=== PATIENT | male | born 1990 | race Caucasian/White ===

== ENCOUNTER 2018-03-24 13:06 | Emergency (ER) | payer MEDICAID ==
[~2018-03-24] VITALS: Ht 177.8 cm; Wt 165.4 kg
[2018-03-24 13:19] VITALS: BP 110/74
[2018-03-24 13:53] LABS: BASOPHILS # (AUTO) 0.06 x10^3/uL (0-0.1); BASOPHILS % (AUTO) 1 % (0-1); EOSINOPHILS # (AUTO) 0.08 x10^3/uL (0-0.4); EOSINOPHILS % (AUTO) 1 % (1-7); LYMPHOCYTES # (AUTO) 2.01 x10^3/uL (1-3.4); LYMPHOCYTES % (AUTO) 30 % (22-44); MD NO; MEAN CORPUSCULAR HEMOGLOBIN 31.5 pg (27.5-34.5); MEAN CORPUSCULAR HGB CONC 33.4 g/dL (33.2-36.2); MEAN CORPUSCULAR VOLUME 94.2 fL (81-97); MEAN PLATELET VOLUME 7.7 fL (7.4-10.4); MONOCYTES # (AUTO) 0.51 x10^3/uL (0.2-0.8); MONOCYTES % (AUTO) 8 % (2-9); NEUTROPHILS # (AUTO) 4.12 x10^3/uL (1.8-6.8); NEUTROPHILS % (AUTO) 61 % (42-75); PLATELET COUNT 374 x10^3/uL (130-400); RED BLOOD COUNT 4.24 x10^6/uL (4.38-5.82); RED CELL DISTRIBUTION WIDTH 13.7 % (9.4-14.8)
[2018-03-24 14:03] LABS: ANION GAP 4 mmol/L (5-15); CALCIUM 8.7 mg/dL (8.5-10.1); CHLORIDE 106 mmol/L (98-107)
[2018-03-24 14:04] LABS: CREATININE 0.92 mg/dL (0.7-1.3)
== END 2018-03-24 16:04 | disposition left against medical advice (07) ==
LOC: ED 15:58
DX: M79.662 Pain in left lower leg (principal); M25.475 Effusion, left foot
CPT/HCPCS: 36415; 80048; 82040; 85025; 99285

== ENCOUNTER 2018-04-14 23:14 | Emergency (ER) | payer MEDICAID ==
[~2018-04-14] VITALS: Ht 177.8 cm; Wt 70.0 kg
[2018-04-14] MEDS ORDERED: METOCLOPRAMIDE 5 MG/ML, 2ML ONE (23:50)
[2018-04-14 23:55] LABS: BASOPHILS # (AUTO) 0.03 x10^3/uL (0-0.1); BASOPHILS % (AUTO) 0 % (0-1); EOSINOPHILS # (AUTO) 0.01 x10^3/uL (0-0.4); EOSINOPHILS % (AUTO) 0 % (1-7); LYMPHOCYTES % (AUTO) 4 % (22-44); MD NO; MEAN CORPUSCULAR HEMOGLOBIN 32.1 pg (27.5-34.5); MEAN CORPUSCULAR HGB CONC 34.3 g/dL (33.2-36.2); MEAN CORPUSCULAR VOLUME 93.5 fL (81-97); MEAN PLATELET VOLUME 7.6 fL (7.4-10.4); MONOCYTES % (AUTO) 6 % (2-9); NEUTROPHILS # (AUTO) 15.59 x10^3/uL (1.8-6.8); NEUTROPHILS % (AUTO) 90 % (42-75); PLATELET COUNT 412 x10^3/uL (130-400); RED BLOOD COUNT 4.95 x10^6/uL (4.38-5.82); RED CELL DISTRIBUTION WIDTH 13.3 % (9.4-14.8)
[2018-04-15] MEDS ORDERED: ONDANSETRON 2MG/ML, 2ML IVPush ONE
[2018-04-15] MEDS ORDERED: SODIUM CHLORIDE 0.9% 1,000ML IVBOLUS ONE
[2018-04-15] MEDS ORDERED: METOCLOPRAMIDE 5 MG/ML, 2ML IVPush ONE
[2018-04-15 00:06] LABS: ALANINE AMINOTRANSFERASE 71 U/L (12-78); ALBUMIN 4.3 g/dL (3.4-5.0); ANION GAP 9 mmol/L (5-15); CALCIUM 9.5 mg/dL (8.5-10.1); CHLORIDE 106 mmol/L (98-107); CREATININE 1.12 mg/dL (0.7-1.3)
[2018-04-15 00:08] LABS: ALKALINE PHOSPHATASE 74 U/L (45-117); BILIRUBIN,TOTAL 0.7 mg/dL (0.2-1.0); TOTAL PROTEIN 8.8 g/dL (6.4-8.2)
[2018-04-15] MEDS ORDERED: PROMETHAZINE 25 MG/ML, 1ML ONE (00:12)
[2018-04-15] MEDS ORDERED: OMNIPAQUE 350 MG/ML, 100ML BOTTLE ONE (00:30)
[2018-04-15] MEDS ORDERED: PROMETHAZINE 25 MG/ML, 1ML IM ONE (00:30)
[2018-04-15 01:51] LABS: MICROSCOPIC INDICATED
[2018-04-15 01:59] LABS: CULTURE INDICATED? NO
[2018-04-15 02:02] LABS: AMPHETAMINE SCREEN, URINE Positive (Negative); BARBITURATE SCREEN, URINE Negative (Negative); BENZODIAZEPINE SCREEN, URINE Negative (Negative); CANNABINOID SCREEN, URINE Positive (Negative); COCAINE SCREEN, URINE Negative (Negative); METHADONE SCREEN, URINE Negative (Negative); OPIATE SCREEN, URINE Negative (Negative)
[2018-04-15] MEDS ORDERED: ZIPRASIDONE 20 MG INJ IM ONE ×2 (02:30→02:31)
[2018-04-15 02:37] VITALS: BP 127/87
== END 2018-04-15 03:10 | disposition home or self-care (01) ==
LOC: ED 04-15 03:08
DX: R11.2 Nausea with vomiting, unspecified (principal); G43.A0 Cyclical vomiting, in migraine, not intractable; F12.129 Cannabis abuse with intoxication, unspecified; F15.129 Other stimulant abuse with intoxication, unspecified; F17.210 Nicotine dependence, cigarettes, uncomplicated
CPT/HCPCS: 36415; 74177; 80053; 80307; 81001; 83690; 85025; 96361; 96372; 96374; 99285; J2550; J2765; J3486; J7030; Q9967

== ENCOUNTER 2018-05-23 15:04 | Emergency (ER) | payer MEDICAID ==
[~2018-05-23] VITALS: Ht 177.8 cm; Wt 76.1 kg
[2018-05-23 15:14] VITALS: BP 108/63
[2018-05-23 15:37] LABS: BASOPHILS # (AUTO) 0.07 x10^3/uL (0-0.1); BASOPHILS % (AUTO) 1 % (0-1); EOSINOPHILS # (AUTO) 0.11 x10^3/uL (0-0.4); EOSINOPHILS % (AUTO) 1 % (1-7); LYMPHOCYTES # (AUTO) 1.76 x10^3/uL (1-3.4); LYMPHOCYTES % (AUTO) 21 % (22-44); MD NO; MEAN CORPUSCULAR HEMOGLOBIN 31.3 pg (27.5-34.5); MEAN CORPUSCULAR HGB CONC 33.4 g/dL (33.2-36.2); MEAN CORPUSCULAR VOLUME 93.6 fL (81-97); MEAN PLATELET VOLUME 7.8 fL (7.4-10.4); MONOCYTES # (AUTO) 0.42 x10^3/uL (0.2-0.8); MONOCYTES % (AUTO) 5 % (2-9); NEUTROPHILS # (AUTO) 6.22 x10^3/uL (1.8-6.8); NEUTROPHILS % (AUTO) 73 % (42-75); PLATELET COUNT 372 x10^3/uL (130-400); RED BLOOD COUNT 4.27 x10^6/uL (4.38-5.82); RED CELL DISTRIBUTION WIDTH 13.3 % (9.4-14.8)
[2018-05-23 15:47] LABS: ALBUMIN 3.7 g/dL (3.4-5.0); ANION GAP 6 mmol/L (5-15); CALCIUM 8.4 mg/dL (8.5-10.1); CHLORIDE 111 mmol/L (98-107); SALICYLATE LEVEL 1.9 mg/dL (2.8-20.0)
[2018-05-23 15:49] LABS: ACETAMINOPHEN < 2 mcg/mL (10-30); CREATININE 1.04 mg/dL (0.7-1.3)
[2018-05-23 16:09] LABS: AMPHETAMINE SCREEN, URINE Positive (Negative); BARBITURATE SCREEN, URINE Negative (Negative); BENZODIAZEPINE SCREEN, URINE Negative (Negative); CANNABINOID SCREEN, URINE Positive (Negative); COCAINE SCREEN, URINE Negative (Negative); METHADONE SCREEN, URINE Negative (Negative); OPIATE SCREEN, URINE Negative (Negative)
== END 2018-05-23 17:55 | disposition home or self-care (01) ==
LOC: ED 15:47
DX: F32.9 Major depressive disorder, single episode, unspecified (principal); F15.10 Other stimulant abuse, uncomplicated; F17.200 Nicotine dependence, unspecified, uncomplicated
CPT/HCPCS: 36415; 80048; 80307; 80329; 82040; 85025; 99284; G0480

== ENCOUNTER 2018-05-24 06:08 | Emergency (ER) | payer MEDICAID ==
[2018-05-24 07:37] LABS: SALICYLATE LEVEL 2.2 mg/dL (2.8-20.0)
[2018-05-24 07:40] LABS: ACETAMINOPHEN < 2 mcg/mL (10-30)
[2018-05-24 08:02] LABS: AMPHETAMINE SCREEN, URINE Positive (Negative); BARBITURATE SCREEN, URINE Negative (Negative); BENZODIAZEPINE SCREEN, URINE Negative (Negative); CANNABINOID SCREEN, URINE Positive (Negative); COCAINE SCREEN, URINE Negative (Negative); METHADONE SCREEN, URINE Negative (Negative); OPIATE SCREEN, URINE Negative (Negative)
[2018-05-24 08:53] VITALS: BP 102/64
== END 2018-05-24 08:55 | disposition home or self-care (01) ==
LOC: ED 07:31
DX: F33.9 Major depressive disorder, recurrent, unspecified (principal); F15.10 Other stimulant abuse, uncomplicated
CPT/HCPCS: 36415; 80307; 80329; 99284; G0480

== ENCOUNTER 2018-05-29 02:24 | Emergency (ER) | payer MEDICAID ==
[~2018-05-29] VITALS: Ht 177.8 cm; Wt 75.0 kg
[2018-05-29 02:25] VITALS: BP 112/62
[2018-05-29 03:23] LABS: AMPHETAMINE SCREEN, URINE Positive (Negative); BARBITURATE SCREEN, URINE Negative (Negative); BENZODIAZEPINE SCREEN, URINE Negative (Negative); CANNABINOID SCREEN, URINE Positive (Negative); COCAINE SCREEN, URINE Negative (Negative); METHADONE SCREEN, URINE Negative (Negative); OPIATE SCREEN, URINE Negative (Negative)
== END 2018-05-29 03:16 | disposition home or self-care (01) ==
LOC: ED 03:12
DX: F15.10 Other stimulant abuse, uncomplicated (principal); F12.10 Cannabis abuse, uncomplicated
CPT/HCPCS: 80307; 99283

== ENCOUNTER 2018-06-01 14:09 | Emergency (ER) | payer MEDICAID ==
[~2018-06-01] VITALS: Ht 167.6 cm; Wt 46.0 kg
[2018-06-01] MEDS ORDERED: SODIUM CHLORIDE 0.9% 1,000 ML IV ONE (14:44)
[2018-06-01] MEDS ORDERED: SODIUM CHLORIDE FLUSH 10ML SYR IVF ONE (15:00)
[2018-06-01] MEDS ORDERED: ONDANSETRON ODT 4 MG PO ONE (15:00)
[2018-06-01] MEDS ORDERED: SODIUM CHLORIDE 0.9% 1,000ML IVBOLUS ONE (15:00)
[2018-06-01] MEDS ORDERED: ONDANSETRON 2MG/ML, 2ML ONE (15:05)
[2018-06-01 15:20] LABS: BASOPHILS # (AUTO) 0.05 x10^3/uL (0-0.1); BASOPHILS % (AUTO) 1 % (0-1); EOSINOPHILS # (AUTO) 0.07 x10^3/uL (0-0.4); EOSINOPHILS % (AUTO) 1 % (1-7); LYMPHOCYTES # (AUTO) 1.52 x10^3/uL (1-3.4); LYMPHOCYTES % (AUTO) 25 % (22-44); MD NO; MEAN CORPUSCULAR HEMOGLOBIN 30.9 pg (27.5-34.5); MEAN CORPUSCULAR HGB CONC 33.3 g/dL (33.2-36.2); MEAN CORPUSCULAR VOLUME 92.8 fL (81-97); MEAN PLATELET VOLUME 7.9 fL (7.4-10.4); MONOCYTES # (AUTO) 0.36 x10^3/uL (0.2-0.8); MONOCYTES % (AUTO) 6 % (2-9); NEUTROPHILS # (AUTO) 4.08 x10^3/uL (1.8-6.8); NEUTROPHILS % (AUTO) 67 % (42-75); PLATELET COUNT 399 x10^3/uL (130-400); RED BLOOD COUNT 4.33 x10^6/uL (4.38-5.82); RED CELL DISTRIBUTION WIDTH 13.5 % (9.4-14.8)
[2018-06-01 15:24] LABS: ALANINE AMINOTRANSFERASE 75 U/L (12-78); ALBUMIN 3.3 g/dL (3.4-5.0); ANION GAP 11 mmol/L (5-15); CALCIUM 8.8 mg/dL (8.5-10.1); CHLORIDE 105 mmol/L (98-107)
[2018-06-01 15:26] LABS: ALKALINE PHOSPHATASE 64 U/L (45-117); BILIRUBIN,TOTAL 0.4 mg/dL (0.2-1.0); TOTAL PROTEIN 7.1 g/dL (6.4-8.2)
[2018-06-01] MEDS ORDERED: ONDANSETRON 2MG/ML, 2ML IVPush ONE (15:30)
[2018-06-01 17:30] VITALS: BP 106/64
== END 2018-06-01 17:33 | disposition home or self-care (01) ==
LOC: ED 15:57
DX: R11.2 Nausea with vomiting, unspecified (principal); E86.0 Dehydration; K21.9 Gastro-esophageal reflux disease without esophagitis
CPT/HCPCS: 36415; 80053; 83690; 85025; 96361; 96374; 99285; J2405; J7030

== ENCOUNTER 2018-06-02 05:58 | Emergency (ER) | payer MEDICAID ==
[~2018-06-02] VITALS: Ht 177.8 cm; Wt 80.0 kg
[2018-06-02 07:55] VITALS: BP 121/79
== END 2018-06-02 08:04 | disposition home or self-care (01) ==
LOC: ED 06:14
DX: R11.2 Nausea with vomiting, unspecified (principal)
CPT/HCPCS: 36415; 80047; 99283

== ENCOUNTER 2018-06-04 14:35 | Emergency (ER) | payer MEDICAID ==
[~2018-06-04] VITALS: Ht 177.8 cm; Wt 80.0 kg
[2018-06-04 15:22] VITALS: BP 134/77
== END 2018-06-04 15:57 | disposition home or self-care (01) ==
LOC: ED 15:40
DX: F15.10 Other stimulant abuse, uncomplicated (principal)
CPT/HCPCS: 99281

== ENCOUNTER 2018-06-13 19:47 | Emergency (ER) | payer MEDICAID ==
[~2018-06-13] VITALS: Ht 177.8 cm; Wt 78.0 kg
[2018-06-13] MEDS ORDERED: MECLIZINE CHEWABLE 25 MG TAB PO ONE (20:00)
[2018-06-13] MEDS ORDERED: SODIUM CHLORIDE FLUSH 10ML SYR IVF ONE (20:00)
[2018-06-13] MEDS ORDERED: MAALOX/HYOSCYAMINE/LIDOCAINE 45 ML BTL PO ONE (20:00)
[2018-06-13] MEDS ORDERED: SODIUM CHLORIDE 0.9% 1,000ML IVBOLUS ONE (20:00)
[2018-06-13] MEDS ORDERED: MECLIZINE CHEWABLE 25 MG TAB ONE (20:01)
[2018-06-13] MEDS ORDERED: MAALOX/HYOSCYAMINE/LIDOCAINE 45 ML BTL ONE (20:01)
[2018-06-13 20:25] LABS: BASOPHILS # (AUTO) 0.04 x10^3/uL (0-0.1); BASOPHILS % (AUTO) 0 % (0-1); EOSINOPHILS # (AUTO) 0.03 x10^3/uL (0-0.4); EOSINOPHILS % (AUTO) 0 % (1-7); LYMPHOCYTES # (AUTO) 1.47 x10^3/uL (1-3.4); LYMPHOCYTES % (AUTO) 13 % (22-44); MD NO; MEAN CORPUSCULAR HEMOGLOBIN 31.7 pg (27.5-34.5); MEAN CORPUSCULAR HGB CONC 33.8 g/dL (33.2-36.2); MEAN CORPUSCULAR VOLUME 93.9 fL (81-97); MEAN PLATELET VOLUME 7.9 fL (7.4-10.4); MONOCYTES # (AUTO) 0.54 x10^3/uL (0.2-0.8); MONOCYTES % (AUTO) 5 % (2-9); NEUTROPHILS # (AUTO) 9.11 x10^3/uL (1.8-6.8); NEUTROPHILS % (AUTO) 81 % (42-75); PLATELET COUNT 401 x10^3/uL (130-400); RED BLOOD COUNT 4.52 x10^6/uL (4.38-5.82); RED CELL DISTRIBUTION WIDTH 13.9 % (9.4-14.8)
[2018-06-13 20:36] LABS: ALANINE AMINOTRANSFERASE 152 U/L (12-78); ALBUMIN 4.1 g/dL (3.4-5.0); ANION GAP 9 mmol/L (5-15); CALCIUM 9.5 mg/dL (8.5-10.1); CHLORIDE 105 mmol/L (98-107)
[2018-06-13 20:38] LABS: ALKALINE PHOSPHATASE 66 U/L (45-117); BILIRUBIN,TOTAL 0.3 mg/dL (0.2-1.0); TOTAL PROTEIN 8.4 g/dL (6.4-8.2)
[2018-06-13 20:40] LABS: TROPONIN I < 0.015 ng/mL (0.000-0.045)
[2018-06-13 21:06] VITALS: BP 104/57
== END 2018-06-13 21:26 | disposition home or self-care (01) ==
LOC: ED 19:58
DX: R42 Dizziness and giddiness (principal); R10.13 Epigastric pain
CPT/HCPCS: 36415; 80053; 83690; 84484; 85025; 93005; 96360; 99285; J7030

== ENCOUNTER 2018-06-20 15:25 | Emergency (ER) | payer MEDICAID ==
[~2018-06-20] VITALS: Ht 177.8 cm; Wt 75.0 kg
[2018-06-20] MEDS ORDERED: ONDANSETRON ODT 4 MG ONE (15:56)
[2018-06-20] MEDS ORDERED: ONDANSETRON ODT 4 MG PO ONE (16:00)
[2018-06-20 16:02] LABS: BASOPHILS # (AUTO) 0.06 x10^3/uL (0-0.1); BASOPHILS % (AUTO) 1 % (0-1); EOSINOPHILS # (AUTO) 0.09 x10^3/uL (0-0.4); EOSINOPHILS % (AUTO) 1 % (1-7); LYMPHOCYTES # (AUTO) 1.42 x10^3/uL (1-3.4); LYMPHOCYTES % (AUTO) 17 % (22-44); MD NO; MEAN CORPUSCULAR HEMOGLOBIN 31.6 pg (27.5-34.5); MEAN CORPUSCULAR HGB CONC 33.7 g/dL (33.2-36.2); MEAN CORPUSCULAR VOLUME 93.7 fL (81-97); MEAN PLATELET VOLUME 7.9 fL (7.4-10.4); MONOCYTES # (AUTO) 0.39 x10^3/uL (0.2-0.8); MONOCYTES % (AUTO) 5 % (2-9); NEUTROPHILS # (AUTO) 6.47 x10^3/uL (1.8-6.8); NEUTROPHILS % (AUTO) 77 % (42-75); PLATELET COUNT 464 x10^3/uL (130-400); RED BLOOD COUNT 4.25 x10^6/uL (4.38-5.82); RED CELL DISTRIBUTION WIDTH 13.8 % (9.4-14.8)
[2018-06-20 16:07] LABS: ALANINE AMINOTRANSFERASE 128 U/L (12-78); ALBUMIN 3.4 g/dL (3.4-5.0); ANION GAP 9 mmol/L (5-15); CALCIUM 8.6 mg/dL (8.5-10.1); CHLORIDE 104 mmol/L (98-107); CREATININE 0.85 mg/dL (0.7-1.3)
[2018-06-20 16:10] LABS: ALKALINE PHOSPHATASE 60 U/L (45-117); BILIRUBIN,TOTAL 0.3 mg/dL (0.2-1.0); TOTAL PROTEIN 7.5 g/dL (6.4-8.2)
[2018-06-20] MEDS ORDERED: PROMETHAZINE 25 MG/ML, 1ML IM ONE (16:30)
[2018-06-20] MEDS ORDERED: MAALOX/HYOSCYAMINE/LIDOCAINE 45 ML BTL PO ONE (16:30)
[2018-06-20] MEDS ORDERED: MAALOX/HYOSCYAMINE/LIDOCAINE 45 ML BTL ONE (17:53)
[2018-06-20] MEDS ORDERED: PROMETHAZINE 25 MG/ML, 1ML ONE (17:53)
[2018-06-20 19:03] VITALS: BP 111/75
== END 2018-06-20 19:04 | disposition home or self-care (01) ==
LOC: ED 16:45
DX: R55 Syncope and collapse (principal); R11.0 Nausea; F32.9 Major depressive disorder, single episode, unspecified; F17.200 Nicotine dependence, unspecified, uncomplicated
CPT/HCPCS: 36415; 76700; 80053; 83690; 85025; 86677; 93005; 96372; 99285; J2550; Q0162

== ENCOUNTER 2018-06-23 09:59 | Emergency (ER) | payer MEDICAID ==
[~2018-06-23] VITALS: Ht 177.8 cm; Wt 81.7 kg
[2018-06-23 10:05] VITALS: BP 111/71
== END 2018-06-23 11:16 | disposition home or self-care (01) ==
LOC: ED 10:45
DX: K02.9 Dental caries, unspecified (principal); J02.9 Acute pharyngitis, unspecified; F32.9 Major depressive disorder, single episode, unspecified; F17.200 Nicotine dependence, unspecified, uncomplicated; F12.10 Cannabis abuse, uncomplicated; Z72.9 Problem related to lifestyle, unspecified; Z87.11 Personal history of peptic ulcer disease
CPT/HCPCS: 99283

== ENCOUNTER 2018-06-25 05:50 | Emergency (ER) | payer MEDICAID ==
[~2018-06-25] VITALS: Ht 177.8 cm; Wt 75.0 kg
[2018-06-25] MEDS ORDERED: PROMETHAZINE 25 MG/ML, 1ML IM ONE (06:30)
[2018-06-25 06:37] LABS: BASOPHILS # (AUTO) 0.02 x10^3/uL (0-0.1); BASOPHILS % (AUTO) 0 % (0-1); EOSINOPHILS # (AUTO) 0.25 x10^3/uL (0-0.4); EOSINOPHILS % (AUTO) 3 % (1-7); LYMPHOCYTES # (AUTO) 1.82 x10^3/uL (1-3.4); LYMPHOCYTES % (AUTO) 19 % (22-44); MD NO; MEAN CORPUSCULAR HEMOGLOBIN 31.3 pg (27.5-34.5); MEAN CORPUSCULAR HGB CONC 33.2 g/dL (33.2-36.2); MEAN CORPUSCULAR VOLUME 94.2 fL (81-97); MEAN PLATELET VOLUME 7.5 fL (7.4-10.4); MONOCYTES % (AUTO) 9 % (2-9); NEUTROPHILS # (AUTO) 6.46 x10^3/uL (1.8-6.8); NEUTROPHILS % (AUTO) 69 % (42-75); PLATELET COUNT 428 x10^3/uL (130-400); RED CELL DISTRIBUTION WIDTH 14.4 % (9.4-14.8)
[2018-06-25] MEDS ORDERED: PROMETHAZINE 25 MG/ML, 1ML ONE (06:45)
[2018-06-25 06:49] LABS: ALANINE AMINOTRANSFERASE 196 U/L (12-78); ALBUMIN 3.2 g/dL (3.4-5.0); ANION GAP 6 mmol/L (5-15); CALCIUM 8.3 mg/dL (8.5-10.1); CHLORIDE 110 mmol/L (98-107); CREATININE 0.66 mg/dL (0.7-1.3)
[2018-06-25 06:51] LABS: ALKALINE PHOSPHATASE 67 U/L (45-117); BILIRUBIN,TOTAL 0.3 mg/dL (0.2-1.0); TOTAL PROTEIN 6.6 g/dL (6.4-8.2)
[2018-06-25 07:09] VITALS: BP 108/74
== END 2018-06-25 08:58 | disposition home or self-care (01) ==
LOC: ED 06:29
DX: R11.2 Nausea with vomiting, unspecified (principal); R19.7 Diarrhea, unspecified
CPT/HCPCS: 36415; 80053; 83690; 85025; 99284

== ENCOUNTER 2018-06-27 08:33 | Emergency (ER) | payer MEDICAID | END 2018-06-27 09:19 | disposition left against medical advice (07) | LOC: ED 09:13 | DX: Z53.21 Procedure and treatment not carried out due to patient leaving prior to being seen by health care provider (principal) ==

== ENCOUNTER 2018-11-28 12:32 | Emergency (ER) | payer MEDICAID ==
[~2018-11-28] VITALS: Ht 175.3 cm; Wt 90.0 kg
[2018-11-28] MEDS ORDERED: SODIUM CHLORIDE 0.9% 1,000ML IVBOLUS ONE (13:30)
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
--- NOTE | 2018-11-28 14:13 | NUR ---
PT. REMAINS MONITORED. PT.'S VITALS COMPLETED.
--- NOTE | 2018-11-28 15:20 | NUR ---
LUNCH RN: PT RESTING IN BED, NADN, VSS, RR EVEN AND UNLABORED. WILL CONTINUE TO MONITOR.
--- NOTE | 2018-11-28 15:31 | NUR ---
PT. HAS NO CHANGES AT THIS TIME. PT. REMAINS MONITORED AND IS RESTING WITHOUT CONCERNS.
--- NOTE | 2018-11-28 15:41 | NUR ---
BLANKETS IN PLACE FOR WARMTH. HOB ELEVATED GREATER THAN 30 DEGREES. NS INFUSING.
[2018-11-28 16:49] VITALS: BP 97/55
--- NOTE | 2018-11-28 16:52 | NUR ---
Note undone in [facility] - 11/28/18 at 1704 by ADRIANE NO CHANGED AT THIS TIME. Addendum: 11/28/18 at 1704 by ADRIANE Veronica londonone in [facility] - 11/28/18 at 1704 by STEPHANIEOVEN NO CHANGES AT THIS TIME.
--- NOTE | 2018-11-28 17:04 | NUR ---
NO CHANGES AT THIS TIME.
== END 2018-11-28 19:24 | disposition home or self-care (01) ==
LOC: ED 16:32
DX: F12.120 Cannabis abuse with intoxication, uncomplicated (principal); I95.9 Hypotension, unspecified; F32.9 Major depressive disorder, single episode, unspecified; F17.200 Nicotine dependence, unspecified, uncomplicated
CPT/HCPCS: 96360; 96361; 99283; J7030

== ENCOUNTER 2018-12-30 02:34 | Emergency (ER) | payer MEDICAID ==
[~2018-12-30] VITALS: Ht 177.8 cm; Wt 81.5 kg
--- NOTE | 2018-12-30 03:25 | NUR ---
First contact w/ pt. Amb to room w/ steady gait. Yolandan.
[2018-12-30] MEDS ORDERED: PROMETHAZINE 25 MG/ML, 1ML ONE (03:26)
--- NOTE | 2018-12-30 03:29 | NUR ---
Pt medicated per oct. Monitoring applied. and pt head of bed elevated to above 45 degrees for pt safety for c/o emesis. Pt offered liquids and informed of need for po challenge via pa order. Pt refusing all liquids and po foods. No wretching or eminent emesis noted in room.
[2018-12-30] MEDS ORDERED: PROMETHAZINE 25 MG/ML, 1ML IM ONE (03:30)
[2018-12-30 03:31] VITALS: BP 138/73
--- NOTE | 2018-12-30 03:53 | NUR ---
Pt refusing to drink anything. This rn asked why and pt stated "because if i drink something ill have to leave." Pa notified.
== END 2018-12-30 04:01 | disposition home or self-care (01) ==
LOC: ED 03:26
DX: F10.10 Alcohol abuse, uncomplicated (principal); F12.10 Cannabis abuse, uncomplicated; R11.2 Nausea with vomiting, unspecified; F32.9 Major depressive disorder, single episode, unspecified; Z72.9 Problem related to lifestyle, unspecified; Z91.14 Patient's other noncompliance with medication regimen; Z87.11 Personal history of peptic ulcer disease
CPT/HCPCS: 96372; 99283; J2550

== ENCOUNTER 2019-02-17 07:03 | Inpatient (IN) | payer MEDICAID ==
[~2019-02-17] VITALS: Ht 177.8 cm; Wt 77.1 kg
--- NOTE | 2019-02-17 07:07 | NUR ---
UNABLE TO GET TEMP D/T VOMITING.
[2019-02-17] MEDS ORDERED: ONDANSETRON 2MG/ML, 2ML ONE ×2 (07:14→10:32)
[2019-02-17] MEDS ORDERED: KETOROLAC 30 MG/1 ML IVPush ONE (07:30)
[2019-02-17] MEDS ORDERED: ONDANSETRON 2MG/ML, 2ML IVPush ONE ×2 (07:30→09:30)
[2019-02-17] MEDS ORDERED: KETOROLAC 30 MG/1 ML ONE (07:41)
--- NOTE | 2019-02-17 07:49 | NUR ---
pt to CT scan at this time, pt has been unable to provide UA thus far. RN has informed pt that UA is needed HALLE
[2019-02-17 07:50] LABS: BASOPHILS # (AUTO) 0.03 x10^3/uL (0-0.1); BASOPHILS % (AUTO) 0 % (0-1); EOSINOPHILS # (AUTO) 0.03 x10^3/uL (0-0.4); EOSINOPHILS % (AUTO) 0 % (1-7); LYMPHOCYTES # (AUTO) 1.18 x10^3/uL (1-3.4); LYMPHOCYTES % (AUTO) 13 % (22-44); MD NO; MEAN CORPUSCULAR HEMOGLOBIN 31.2 pg (27.5-34.5); MEAN CORPUSCULAR HGB CONC 32.6 g/dL (33.2-36.2); MEAN CORPUSCULAR VOLUME 95.8 fL (81-97); MEAN PLATELET VOLUME 7.7 fL (7.4-10.4); MONOCYTES # (AUTO) 0.57 x10^3/uL (0.2-0.8); MONOCYTES % (AUTO) 6 % (2-9); NEUTROPHILS # (AUTO) 7.12 x10^3/uL (1.8-6.8); NEUTROPHILS % (AUTO) 80 % (42-75); PLATELET COUNT 424 x10^3/uL (130-400); RED BLOOD COUNT 4.93 x10^6/uL (4.38-5.82); RED CELL DISTRIBUTION WIDTH 12.9 % (9.4-14.8)
[2019-02-17 07:59] LABS: ALANINE AMINOTRANSFERASE 114 U/L (12-78); ALBUMIN 4.5 g/dL (3.4-5.0); ANION GAP 11 mmol/L (5-15); CALCIUM 9.9 mg/dL (8.5-10.1); CHLORIDE 107 mmol/L (98-107); CREATININE 1.14 mg/dL (0.7-1.3)
[2019-02-17 08:01] LABS: ALKALINE PHOSPHATASE 71 U/L (45-117); BILIRUBIN,TOTAL 0.8 mg/dL (0.2-1.0); TOTAL PROTEIN 8.7 g/dL (6.4-8.2)
[2019-02-17] MEDS ORDERED: PROMETHAZINE 25 MG/ML, 1ML ONE (08:22)
[2019-02-17] MEDS ORDERED: PROMETHAZINE 25 MG/ML, 1ML IM ONE (08:30)
[2019-02-17] MEDS ORDERED: MORPHINE SULFATE 4 MG/ML, 1ML IVPush PRN ×2 (08:30→13:00)
--- NOTE | 2019-02-17 08:47 | NUR ---
pt states he is still unable to urinate
--- NOTE | 2019-02-17 09:17 | NUR ---
BEDSIDE REPORT TO TROY GAO, PT CARE TRANSFERRED AT THIS TIME
[2019-02-17] MEDS ORDERED: SODIUM CHLORIDE 0.9% 1,000ML IVBOLUS ONE (09:30)
--- NOTE | 2019-02-17 09:36 | NUR ---
pt straight cathed per dr. dozier order. at this time no urine atained from straight cath. made aware. 1 liter ns bolus initiated.
--- NOTE | 2019-02-17 10:02 | NUR ---
UPO ENTERING ROOM TO UPDATE VITALS THIS RN NOTICES A STRONG SMELL OF CIGARETTE SMOKE. PT IS SITTING UP IN BED. PT DENIES SMOKING IN ROOM. MADE AWARE
[2019-02-17] MEDS ORDERED: SODIUM CHLORIDE 0.9% 1,000 ML IV ONE (10:34)
[2019-02-17] MEDS ORDERED: SODIUM CHLORIDE FLUSH 10ML SYR IVF PRN (11:00)
[2019-02-17 11:37] VITALS: BP 136/90
[2019-02-17 13:30] VITALS: BP 114/68
[2019-02-17] MEDS ORDERED: BISACODYL 10 MG SUPP PR PRN (14:00)
[2019-02-17] MEDS: NICOTINE 21 MG/24 HR PATCH.TD24 TD SCH (14:00)
[2019-02-17] MEDS ORDERED: LIDODERM 5% PATCH TD PRN (14:00)
[2019-02-17] MEDS ORDERED: ZOLPIDEM 5MG TABLET PO PRN (14:00)
[2019-02-17] MEDS ORDERED: DOCUSATE 100 MG CAPSULE PO PRN (14:00)
[2019-02-17] MEDS ORDERED: hydrALAzine 20 MG/ML, 1ML IVPush PRN (14:00)
[2019-02-17] MEDS: ENOXAPARIN 40 MG/0.4 ML SQ SCH ×2 (14:00→14:04)
[2019-02-17] MEDS ORDERED: ACETAMINOPHEN 325 MG TABLET PO PRN (14:00)
[2019-02-17] MEDS ORDERED: ONDANSETRON ODT 4 MG PO PRN (14:00)
[2019-02-17] MEDS: SODIUM CHLORIDE 0.9% 1,000 ML IV SCH ×2 (14:04→22:18)
[2019-02-17] MEDS: morphine SULFATE 10 MG/ML, 1ML IVPush PRN ×2 (15:44→18:43)
[2019-02-17] MEDS: PROMETHAZINE 25 MG/ML, 1ML IM PRN (15:44)
[2019-02-17 19:15] VITALS: BP 117/73
[2019-02-17] MEDS: FAMOTIDINE 20 MG TABLET PO SCH (21:00)
[2019-02-18] MEDS: ONDANSETRON 2MG/ML, 2ML IVPush PRN ×2 (01:32→14:30)
[2019-02-18] MEDS: morphine SULFATE 10 MG/ML, 1ML IVPush PRN ×3 (01:33→20:21)
[2019-02-18] MEDS: PROMETHAZINE 25 MG/ML, 1ML IM PRN ×2 (01:34→18:26)
[2019-02-18] MEDS: LIDODERM REMOVE PATCH NOTE XX SCH (02:00)
[2019-02-18] MEDS: SODIUM CHLORIDE 0.9% 1,000 ML IV SCH ×2 (05:07→15:46)
[2019-02-18 05:09] LABS: MEAN CORPUSCULAR HEMOGLOBIN 31.3 pg (27.5-34.5); MEAN CORPUSCULAR HGB CONC 32.4 g/dL (33.2-36.2); MEAN CORPUSCULAR VOLUME 96.5 fL (81-97); MEAN PLATELET VOLUME 7.9 fL (7.4-10.4); PLATELET COUNT 379 x10^3/uL (130-400); RED CELL DISTRIBUTION WIDTH 13.3 % (9.4-14.8)
[2019-02-18 05:10] LABS: ANION GAP 9 mmol/L (5-15); CALCIUM 8.4 mg/dL (8.5-10.1); CHLORIDE 107 mmol/L (98-107)
[2019-02-18 05:20] LABS: CREATININE 0.87 mg/dL (0.7-1.3); THYROID STIMULATING HORMONE 0.274 mIU/L (0.358-3.740)
[2019-02-18 05:53] LABS: BASOPHILS # (AUTO) 0.05 x10^3/uL (0-0.1); BASOPHILS % (AUTO) 1 % (0-1); EOSINOPHILS # (AUTO) 0.01 x10^3/uL (0-0.4); EOSINOPHILS % (AUTO) 0 % (1-7); LYMPHOCYTES # (AUTO) 1.38 x10^3/uL (1-3.4); LYMPHOCYTES % (AUTO) 13 % (22-44); MD SCAN; MONOCYTES # (AUTO) 0.74 x10^3/uL (0.2-0.8); MONOCYTES % (AUTO) 7 % (2-9); NEUTROPHILS # (AUTO) 8.88 x10^3/uL (1.8-6.8); NEUTROPHILS % (AUTO) 80 % (42-75)
[2019-02-18] MEDS ORDERED: FENTANYL PF 250 MCG/5ML ONE (06:54)
[2019-02-18] MEDS ORDERED: MIDAZOLAM 1 MG/ML, 2ML ONE (06:54)
[2019-02-18] MEDS ORDERED: ROCURONIUM 10MG/ML,5ML ONE (07:00)
[2019-02-18] MEDS ORDERED: NEOSTIGMINE 1 MG/ML, 10ML ONE (07:00)
[2019-02-18] MEDS ORDERED: PROPOFOL 10 MG/ML, 20ML ONE (07:00)
[2019-02-18] MEDS ORDERED: KETOROLAC 30 MG/1 ML ONE (07:00)
[2019-02-18] MEDS ORDERED: DEXAMETHASONE 4 MG/ML, 1ML ONE (07:00)
[2019-02-18] MEDS ORDERED: CEFAZOLIN 1,000 MG ONE (07:00)
[2019-02-18] MEDS ORDERED: GLYCOPYRROLATE 0.2MG/1ML, 5ML ONE (07:00)
[2019-02-18] MEDS ORDERED: SUCCINYLCHOLINE 20 MG/ML, 10ML ONE (07:00)
[2019-02-18] MEDS ORDERED: ONDANSETRON 2MG/ML, 2ML ONE (07:00)
[2019-02-18] MEDS ORDERED: PHENYLEPHRINE 10 MG/ML ONE (07:16)
[2019-02-18] MEDS ORDERED: MORPHINE SULFATE 4 MG/ML, 1ML IVPush PRN (07:30)
[2019-02-18] MEDS ORDERED: MEPERIDINE/PF 25MG/0.5ML IVPush PRN (07:30)
[2019-02-18] MEDS ORDERED: HYDROmorphone 2 MG/ML, 1ML IVPush PRN (07:30)
[2019-02-18] MEDS ORDERED: hydrALAzine 20 MG/ML, 1ML IV PRN (07:30)
[2019-02-18] MEDS ORDERED: PROMETHAZINE 12.5 MG SUPP PR PRN (07:30)
[2019-02-18] MEDS ORDERED: ONDANSETRON 2MG/ML, 2ML IV PRN (07:30)
[2019-02-18] MEDS ORDERED: HALOPERIDOL 5 MG/ML IV PRN (07:30)
[2019-02-18] MEDS ORDERED: OXYcodone 5 MG/5 ML ORAL.SOL UDC PO PRN (07:30)
[2019-02-18] MEDS ORDERED: PROMETHAZINE 25 MG/ML, 1ML IV PRN (07:30)
[2019-02-18] MEDS ORDERED: ACETAMINOPHEN 325 MG TABLET PO PRN (07:30)
[2019-02-18] MEDS ORDERED: LABETALOL 5MG/ML, 20ML IV PRN (07:30)
[2019-02-18] MEDS ORDERED: PROMETHAZINE 25 MG SUPP PR PRN (07:30)
[2019-02-18] MEDS ORDERED: ONDANSETRON ODT 8 MG PO PRN (07:30)
[2019-02-18] MEDS ORDERED: FENTANYL PF 100 MCG/2ML IV PRN (07:30)
[2019-02-18] MEDS ORDERED: PROMETHAZINE 25 MG/ML, 1ML IM PRN ×2 (07:30)
[2019-02-18] MEDS: FAMOTIDINE 20 MG TABLET PO SCH ×2 (09:00→21:00)
[2019-02-18 09:05] LABS: MICROSCOPIC INDICATED
[2019-02-18 09:37] LABS: CULTURE INDICATED? YES
[2019-02-18] MEDS ORDERED: OMNIPAQUE 350 MG/ML, 50 ML BOTTLE ONE (09:53)
[2019-02-18 12:49] VITALS: BP 112/71
[2019-02-18] MEDS: NICOTINE 21 MG/24 HR PATCH.TD24 TD SCH (13:29)
[2019-02-18] MEDS ORDERED: HYDROcodone/APAP 5/325 TABLET PO PRN (14:30)
[2019-02-18 19:24] VITALS: BP 149/93
[2019-02-19] MEDS: morphine SULFATE 10 MG/ML, 1ML IVPush PRN ×3 (00:05→09:56)
[2019-02-19 00:17] VITALS: BP 145/91
[2019-02-19] MEDS: PROMETHAZINE 25 MG/ML, 1ML IM PRN (00:35)
[2019-02-19] MEDS: LIDODERM REMOVE PATCH NOTE XX SCH (02:00)
[2019-02-19] MEDS: SODIUM CHLORIDE 0.9% 1,000 ML IV SCH ×4 (02:06→21:48)
[2019-02-19 04:34] VITALS: BP 145/90
[2019-02-19 05:30] LABS: BASOPHILS # (AUTO) 0.01 x10^3/uL (0-0.1); BASOPHILS % (AUTO) 0 % (0-1); EOSINOPHILS # (AUTO) 0.01 x10^3/uL (0-0.4); EOSINOPHILS % (AUTO) 0 % (1-7); LYMPHOCYTES # (AUTO) 1.25 x10^3/uL (1-3.4); LYMPHOCYTES % (AUTO) 11 % (22-44); MD NO; MEAN CORPUSCULAR HEMOGLOBIN 31.5 pg (27.5-34.5); MEAN CORPUSCULAR HGB CONC 32.7 g/dL (33.2-36.2); MEAN CORPUSCULAR VOLUME 96.4 fL (81-97); MONOCYTES # (AUTO) 0.43 x10^3/uL (0.2-0.8); MONOCYTES % (AUTO) 4 % (2-9); NEUTROPHILS # (AUTO) 9.27 x10^3/uL (1.8-6.8); NEUTROPHILS % (AUTO) 85 % (42-75); PLATELET COUNT 392 x10^3/uL (130-400); RED BLOOD COUNT 4.34 x10^6/uL (4.38-5.82)
[2019-02-19 05:39] LABS: ANION GAP 9 mmol/L (5-15); C-REACTIVE PROTEIN, QUANT 0.38 mg/dL (0.02-0.49); CALCIUM 8.5 mg/dL (8.5-10.1); CHLORIDE 103 mmol/L (98-107); CREATININE 0.69 mg/dL (0.7-1.3)
[2019-02-19 07:06] VITALS: BP 113/66
[2019-02-19] MEDS: FAMOTIDINE 20 MG TABLET PO SCH ×2 (08:12→20:49)
[2019-02-19] MEDS: NICOTINE 21 MG/24 HR PATCH.TD24 TD SCH (08:12)
[2019-02-19] MEDS: ONDANSETRON 2MG/ML, 2ML IVPush PRN ×2 (08:33→21:42)
[2019-02-19] MEDS ORDERED: KETOROLAC 30 MG/1 ML IVPush PRN (12:30)
[2019-02-19] MEDS: IBUPROFEN 200 MG TABLET PO PRN (13:23)
[2019-02-19] MEDS ORDERED: POTASSIUM CHLORIDE 20 MEQ TAB.ER.PRT PO ONE (13:30)
[2019-02-19 13:34] VITALS: BP 134/83
[2019-02-19 19:25] VITALS: BP 131/77
[2019-02-20] MEDS: PROMETHAZINE 25 MG/ML, 1ML IM PRN (01:19)
[2019-02-20] MEDS: LIDODERM REMOVE PATCH NOTE XX SCH (01:50)
[2019-02-20] MEDS: FAMOTIDINE 20 MG TABLET PO SCH ×2 (02:49→09:09)
[2019-02-20] MEDS: ONDANSETRON 2MG/ML, 2ML IVPush PRN (03:50)
[2019-02-20] MEDS: SODIUM CHLORIDE 0.9% 1,000 ML IV SCH (04:29)
[2019-02-20 06:19] VITALS: BP 152/89
[2019-02-20 06:28] VITALS: BP 142/88
--- NOTE | 2019-02-20 06:38 | NUR ---
GILDA RIVERA - Fall Risk Medications present and NOT receiving anticoagulants.
[2019-02-20] MEDS: IBUPROFEN 200 MG TABLET PO PRN (06:55)
[2019-02-20 07:32] VITALS: BP 148/92
[2019-02-20 08:05] VITALS: BP 138/88
[2019-02-20] MEDS ORDERED: ONDA4TAB7 PO (08:23)
[2019-02-20] MEDS ORDERED: IBUP-1222 PO (08:23)
[2019-02-20 08:52] VITALS: BP 138/66
[2019-02-20] MEDS: NICOTINE 21 MG/24 HR PATCH.TD24 TD SCH (09:09)
== END 2019-02-20 10:55 | disposition home or self-care (01) | DRG 661 ==
LOC: ED 08:53 → EDIP 10:34 → 4NOR 11:17
PROVIDERS: ADMIT Internal Medicine; ATTEND Internal Medicine
PROC: 0TC68ZZ Extirpation of Matter from Right Ureter, Via Natural or Artificial Opening Endoscopic (ICD-10-PCS; principal; 2019-02-17)
PROC: 0T768DZ Dilation of Right Ureter with Intraluminal Device, Via Natural or Artificial Opening Endoscopic (ICD-10-PCS; 2019-02-17)
PROC: BT1D1ZZ Fluoroscopy of Right Kidney, Ureter and Bladder using Low Osmolar Contrast (ICD-10-PCS; 2019-02-18)
DX: N13.2 Hydronephrosis with renal and ureteral calculous obstruction (principal); F15.10 Other stimulant abuse, uncomplicated; D72.829 Elevated white blood cell count, unspecified; W18.30XA Fall on same level, unspecified, initial encounter; Y93.89 Activity, other specified; Y92.89 Other specified places as the place of occurrence of the external cause; Z63.8 Other specified problems related to primary support group; Z87.11 Personal history of peptic ulcer disease; Z87.891 Personal history of nicotine dependence
CPT/HCPCS: 36415; 74176; 74420; 80048; 80053; 81001; 82360; 83690; 84439; 84443; 85025; 86140; 87086; 88300; 96374; 96375; 96376; C1726; G0378; J0690; J1100; J1650; J1885; J2250; J2405; J2550; J2704; J2710; J3010; Q0162; Q9967; C1758; C2617; J0330; J2270; J2370; J7030

== ENCOUNTER 2019-06-27 17:03 | Emergency (ER) | payer MEDICAID ==
[~2019-06-27] VITALS: Ht 177.8 cm; Wt 78.0 kg
[~2019-06-27 17:03] MED LIST: IBUP-1222 PO; ONDA4TAB7 PO
[2019-06-27 17:07] VITALS: BP 120/76
[2019-06-27] MEDS ORDERED: KETOROLAC 30 MG/1 ML IM ONE (18:00)
== END 2019-06-27 17:56 | disposition home or self-care (01) ==
LOC: ED 17:50
DX: L03.114 Cellulitis of left upper limb (principal); F32.9 Major depressive disorder, single episode, unspecified; W57.XXXA Bitten or stung by nonvenomous insect and other nonvenomous arthropods, initial encounter; Y93.89 Activity, other specified; Y92.89 Other specified places as the place of occurrence of the external cause; Y99.8 Other external cause status
CPT/HCPCS: 96372; 99283; J1885

== ENCOUNTER 2019-07-07 18:36 | Emergency (ER) | payer MEDICAID ==
[~2019-07-07] VITALS: Ht 177.8 cm; Wt 72.8 kg
[2019-07-07] MEDS ORDERED: DIPH,PERTUSS(ACELL),TET VAC/PF 0.5 ML IM-VACC ONE ×2 (19:00→19:38)
[2019-07-07] MEDS ORDERED: SODIUM CHLORIDE FLUSH 10ML SYR IVF ONE (19:00)
[2019-07-07] MEDS ORDERED: SODIUM CHLORIDE 0.9% 1,000ML IVBOLUS ONE (19:00)
--- NOTE | 2019-07-07 19:16 | NUR ---
IV PLACED/LABS DRAWN WITH START INCLUDING BC X 1. WOUND CULTURE OBTAINED FROM L ELBOW. CALL LIGHT WITHIN REACH. PT TO XRAY
[2019-07-07] MEDS ORDERED: MORPHINE SULFATE 4 MG/ML, 1ML ONE ×2 (19:38→20:47)
[2019-07-07 19:44] LABS: BASOPHILS # (AUTO) 0.03 x10^3/uL (0-0.1); BASOPHILS % (AUTO) 0 % (0-1); EOSINOPHILS # (AUTO) 0.13 x10^3/uL (0-0.4); EOSINOPHILS % (AUTO) 1 % (1-7); LYMPHOCYTES # (AUTO) 2.44 x10^3/uL (1-3.4); LYMPHOCYTES % (AUTO) 16 % (22-44); MD NO; MEAN CORPUSCULAR HEMOGLOBIN 31.6 pg (27.5-34.5); MEAN CORPUSCULAR HGB CONC 33.3 g/dL (33.2-36.2); MEAN PLATELET VOLUME 7.4 fL (7.4-10.4); MONOCYTES # (AUTO) 0.83 x10^3/uL (0.2-0.8); MONOCYTES % (AUTO) 6 % (2-9); NEUTROPHILS # (AUTO) 11.49 x10^3/uL (1.8-6.8); NEUTROPHILS % (AUTO) 77 % (42-75); PLATELET COUNT 510 x10^3/uL (130-400); RED BLOOD COUNT 4.27 x10^6/uL (4.38-5.82); RED CELL DISTRIBUTION WIDTH 13.2 % (9.4-14.8)
[2019-07-07] MEDS: MORPHINE SULFATE 4 MG/ML, 1ML IV PRN ×2 (19:47→20:49)
[2019-07-07 19:53] LABS: ALBUMIN 3.9 g/dL (3.4-5.0); ANION GAP 4 mmol/L (5-15); CHLORIDE 104 mmol/L (98-107); CREATININE 0.76 mg/dL (0.7-1.3)
[2019-07-07 19:58] LABS: ALANINE AMINOTRANSFERASE 52 U/L (12-78); ALKALINE PHOSPHATASE 61 U/L (45-117)
[2019-07-07 20:31] VITALS: BP 122/68
[2019-07-07] MEDS ORDERED: CLINDAMYCIN PMX 600MG/50ML 50 ML ONE (20:41)
--- NOTE | 2019-07-07 20:55 | NUR ---
IV ANTIBIOTICS INFUSING AFTER VERIFICATION OF BC X 2 DRAWN. 2ND DOSE OF MORPHINE GIVEN FOR PERSISTENT PAIN. CRACKERS, JUICE, PEANUT BUTTER PROVIDED PER REQUEST FOR FOOD. CALL LIGHT WITHIN REACH
[2019-07-07] MEDS ORDERED: CLINDAMYCIN PMX 600MG/50ML 50 ML IV ONE (21:00)
--- NOTE | 2019-07-07 22:22 | NUR ---
PT LEFT AMA, PAPERWORK SIGNED. PT UNDERSTANDING OF RISKS AND BENEFITS. PT AMBULATED AMY WITH DIFFICULTY.
== END 2019-07-07 22:24 | disposition left against medical advice (07) ==
LOC: ED 18:55
DX: L03.114 Cellulitis of left upper limb (principal); F17.200 Nicotine dependence, unspecified, uncomplicated
CPT/HCPCS: 36415; 73080; 80053; 85025; 87040; 87070; 87077; 87147; 87205; 96365; 96375; 96376; 99284; J2270; J7030; 87186

== ENCOUNTER 2019-09-25 12:26 | Emergency (ER) | payer MEDICAID ==
[~2019-09-25] VITALS: Ht 177.8 cm; Wt 72.3 kg
[2019-09-25 12:41] VITALS: BP 138/100
--- NOTE | 2019-09-25 14:43 | NUR ---
NO ANSWER IN LOBBY AT 1315, 1320 AND 1330
== END 2019-09-25 14:48 | disposition left against medical advice (07) ==
LOC: ED 14:40
DX: R11.2 Nausea with vomiting, unspecified (principal); Z53.21 Procedure and treatment not carried out due to patient leaving prior to being seen by health care provider
CPT/HCPCS: 93005

== ENCOUNTER 2019-10-26 17:55 | Emergency (ER) | payer MEDICAID ==
[~2019-10-26] VITALS: Ht 177.8 cm; Wt 73.0 kg
--- NOTE | 2019-10-26 18:15 | NUR ---
29 y/o male bib AMBULANCE WITH C/O N/V/ X 2 HOURS. PT WAS AMBULATORY WITH STEADY GAIT FROM EMS [facility] TO [facility]. NADN. PER REPORT PT ATE SOME CEREAL AND MILK ABOUT TWO HOURS AGO. THEN STARTED VOMITING. PT WAS GIVEN 4 MG ZOFRAN ODT TOUR GUIDE. PER PT "I ATE A FEW HOURS AGO AND HAVE BEEN THROWING UP SINCE." PT PLACED ON CONT PULSE OX,NIBP. NO C/O D, TRAUMA, SYNCOPE, CP, SOB.
[2019-10-26] MEDS ORDERED: SODIUM CHLORIDE 0.9% 1,000 ML IV ONE (18:33)
[2019-10-26] MEDS ORDERED: ONDANSETRON 2MG/ML, 2ML ONE ×2 (18:37→23:12)
--- NOTE | 2019-10-26 18:49 | NUR ---
IN TO START PIV, PT BEING TAKEN TO IMAGING.
--- NOTE | 2019-10-26 18:52 | NUR ---
BEDSIDE REPORT TO TROY HOROWITZ.
[2019-10-26] MEDS ORDERED: ONDANSETRON 2MG/ML, 2ML IVPush ONE ×2 (19:00→23:30)
[2019-10-26] MEDS ORDERED: SODIUM CHLORIDE 0.9% 1,000ML IVBOLUS ONE (19:00)
[2019-10-26] MEDS ORDERED: SODIUM CHLORIDE FLUSH 10ML SYR IVF ONE (19:00)
--- NOTE | 2019-10-26 19:14 | NUR ---
This rn to start iv in room. Pt found in room stimulating gag reflex w/ fingers and warded against that. Pt gives verbal understanding. Iv initiated. No other immediate needs.
[2019-10-26 19:43] LABS: BASOPHILS # (AUTO) 0.06 x10^3/uL (0-0.1); BASOPHILS % (AUTO) 1 % (0-1); EOSINOPHILS # (AUTO) 0.18 x10^3/uL (0-0.4); EOSINOPHILS % (AUTO) 1 % (1-7); LYMPHOCYTES # (AUTO) 1.84 x10^3/uL (1-3.4); LYMPHOCYTES % (AUTO) 14 % (22-44); MD NO; MEAN CORPUSCULAR HEMOGLOBIN 30.9 pg (27.5-34.5); MEAN CORPUSCULAR HGB CONC 33.5 g/dL (33.2-36.2); MEAN CORPUSCULAR VOLUME 92.1 fL (81-97); MEAN PLATELET VOLUME 7.7 fL (7.4-10.4); MONOCYTES # (AUTO) 0.33 x10^3/uL (0.2-0.8); MONOCYTES % (AUTO) 3 % (2-9); NEUTROPHILS # (AUTO) 10.76 x10^3/uL (1.8-6.8); NEUTROPHILS % (AUTO) 82 % (42-75); PLATELET COUNT 475 x10^3/uL (130-400); RED CELL DISTRIBUTION WIDTH 13.6 % (9.4-14.8)
[2019-10-26 19:51] LABS: ALANINE AMINOTRANSFERASE 87 U/L (12-78); ALBUMIN 4.1 g/dL (3.4-5.0); ANION GAP 9 mmol/L (5-15); CALCIUM 9.4 mg/dL (8.5-10.1); CHLORIDE 104 mmol/L (98-107); CREATININE 0.79 mg/dL (0.7-1.3)
[2019-10-26 19:53] LABS: ALKALINE PHOSPHATASE 62 U/L (45-117); BILIRUBIN,TOTAL 0.2 mg/dL (0.2-1.0); TOTAL PROTEIN 8.6 g/dL (6.4-8.2)
--- NOTE | 2019-10-26 20:22 | NUR ---
Pt no longer actively puking while this rn not in room. When this rn in room pt sticking fingers down throat and forcing puke. Md aware of situation.
[2019-10-26] MEDS ORDERED: PROMETHAZINE 25 MG/ML, 1ML IM ONE (20:30)
[2019-10-26] MEDS ORDERED: PROMETHAZINE 25 MG/ML, 1ML ONE (20:31)
--- NOTE | 2019-10-26 20:52 | NUR ---
Pt sleeping comfortably on gurney. No signs of further emesis.
[2019-10-26 21:30] VITALS: BP 131/92
--- NOTE | 2019-10-26 21:39 | NUR ---
Pt report to christa ashton
--- NOTE | 2019-10-26 22:43 | NUR ---
PT SITTING UPRIGHT IN BED DRY HEAVING APPROX EVERY 15-30 MIN W NO EMESIS. PT OTHERWISE DOING FINE. MONITOR IN PLACE.
[2019-10-26] MEDS ORDERED: PROMETHAZINE 25MG TABLET ONE (23:52)
[2019-10-27] MEDS ORDERED: PROMETHAZINE 25MG TABLET PO ONE
== END 2019-10-27 00:07 | disposition home or self-care (01) ==
LOC: ED 18:28
DX: R11.2 Nausea with vomiting, unspecified (principal); F17.200 Nicotine dependence, unspecified, uncomplicated
CPT/HCPCS: 36415; 74022; 80053; 83690; 85025; 96361; 96372; 96374; 96376; 99284; J2405; J2550; J7030; Q0169

== ENCOUNTER 2019-10-27 08:02 | Emergency (ER) | payer MEDICAID ==
[~2019-10-27] VITALS: Ht 177.8 cm; Wt 73.0 kg
--- NOTE | 2019-10-27 08:11 | NUR ---
PT BIBA FOR N/V AND EPIGASTRIC PAIN X2 DAYS. PT WAS SEEN HERE YESTERDAY FOR SAME. PT DENIES ETOH AND DRUG ABUSE. PT CONNECTED TO MONITORS. VSS. WARM BLANKET PROVIDED FOR COMFORT. PT ABLE TO PROVIDE URINE SAMPLE. AWAITING EDMD ASSESSMENT.
[2019-10-27] MEDS ORDERED: MAALOX/HYOSCYAMINE/LIDOCAINE 45 ML BTL PO ONE (08:30)
[2019-10-27] MEDS ORDERED: ONDANSETRON 2MG/ML, 2ML IVPush ONE (08:30)
[2019-10-27] MEDS ORDERED: SODIUM CHLORIDE FLUSH 10ML SYR IVF ONE (08:30)
[2019-10-27] MEDS ORDERED: FAMOTIDINE 20 MG/2 ML IVPush ONE (08:30)
[2019-10-27] MEDS ORDERED: FAMOTIDINE 20 MG TABLET ONE (08:36)
[2019-10-27] MEDS ORDERED: MAALOX/HYOSCYAMINE/LIDOCAINE 45 ML BTL ONE (08:36)
[2019-10-27 08:40] LABS: BASOPHILS # (AUTO) 0.01 x10^3/uL (0-0.1); BASOPHILS % (AUTO) 0 % (0-1); EOSINOPHILS % (AUTO) 0 % (1-7); LYMPHOCYTES # (AUTO) 1.29 x10^3/uL (1-3.4); LYMPHOCYTES % (AUTO) 11 % (22-44); MD NO; MEAN CORPUSCULAR HEMOGLOBIN 30.9 pg (27.5-34.5); MEAN CORPUSCULAR HGB CONC 33.4 g/dL (33.2-36.2); MEAN CORPUSCULAR VOLUME 92.5 fL (81-97); MEAN PLATELET VOLUME 7.6 fL (7.4-10.4); MONOCYTES # (AUTO) 0.22 x10^3/uL (0.2-0.8); MONOCYTES % (AUTO) 2 % (2-9); NEUTROPHILS # (AUTO) 10.12 x10^3/uL (1.8-6.8); NEUTROPHILS % (AUTO) 87 % (42-75); PLATELET COUNT 506 x10^3/uL (130-400); RED BLOOD COUNT 5.07 x10^6/uL (4.38-5.82); RED CELL DISTRIBUTION WIDTH 13.8 % (9.4-14.8)
[2019-10-27 08:48] LABS: ANION GAP 6 mmol/L (5-15); CALCIUM 9.7 mg/dL (8.5-10.1); CHLORIDE 105 mmol/L (98-107)
[2019-10-27 08:51] LABS: ALANINE AMINOTRANSFERASE 80 U/L (12-78); ALKALINE PHOSPHATASE 67 U/L (45-117); BILIRUBIN,TOTAL 0.4 mg/dL (0.2-1.0); CREATININE 0.71 mg/dL (0.7-1.3); TOTAL PROTEIN 8.6 g/dL (6.4-8.2)
[2019-10-27] MEDS ORDERED: ONDANSETRON ODT 8 MG ONE (08:54)
[2019-10-27 08:56] VITALS: BP 107/64
--- NOTE | 2019-10-27 08:58 | NUR ---
AFTER DISCUSSION WTIH PROVIDER AND PT, NO IV AT THIS TIME. MEDS CHANGED. PT RESTING IN ROOM WITH EYES CLOSED. VSS. NO NEEDS EXPRESSED. AWAITING FURTHER ORDERS.
[2019-10-27] MEDS ORDERED: FAMOTIDINE 20 MG TABLET PO ONE (09:00)
[2019-10-27] MEDS ORDERED: PROMETHAZINE 25 MG/ML, 1ML IM ONE (09:00)
[2019-10-27] MEDS ORDERED: ONDANSETRON ODT 8 MG PO ONE (09:00)
== END 2019-10-27 09:13 | disposition home or self-care (01) ==
LOC: ED 08:27
DX: K29.00 Acute gastritis without bleeding (principal); R10.13 Epigastric pain; R11.2 Nausea with vomiting, unspecified
CPT/HCPCS: 36415; 76700; 80053; 83690; 85025; 99284; Q0162

== ENCOUNTER 2020-01-12 04:56 | Emergency (ER) | payer MEDICAID ==
[~2020-01-12] VITALS: Ht 177.8 cm; Wt 77.4 kg
[2020-01-12 05:01] VITALS: BP 115/74
--- NOTE | 2020-01-12 05:10 | NUR ---
Seated in chair at nurses station currently while awaiting availability of room. Pt denies SI/HI currently. Sleeping intermittently
--- NOTE | 2020-01-12 05:23 | NUR ---
Sleeping quietly in chiarm appears NAD, resp rate even and reg.
--- NOTE | 2020-01-12 05:35 | NUR ---
Pt awakened at this time for eval by PA.
--- NOTE | 2020-01-12 06:11 | NUR ---
Urine specimen collected and walked to lab, pt remains seated in wheelchair at nurses station for pt safety. Meal tray ordered and fluids given.
--- NOTE | 2020-01-12 06:26 | NUR ---
Sleeping quietly at this time, remains in view of nurses station for pt safety
[2020-01-12 06:33] LABS: MICROSCOPIC INDICATED
[2020-01-12 06:40] LABS: AMPHETAMINE SCREEN, URINE Positive (Negative); BARBITURATE SCREEN, URINE Negative (Negative); BENZODIAZEPINE SCREEN, URINE Negative (Negative); CANNABINOID SCREEN, URINE Positive (Negative); COCAINE SCREEN, URINE Negative (Negative); METHADONE SCREEN, URINE Negative (Negative); OPIATE SCREEN, URINE Negative (Negative)
[2020-01-12 06:41] LABS: BASOPHILS # (AUTO) 0.03 x10^3/uL (0-0.1); BASOPHILS % (AUTO) 0 % (0-1); EOSINOPHILS # (AUTO) 0.14 x10^3/uL (0-0.4); EOSINOPHILS % (AUTO) 2 % (1-7); LYMPHOCYTES # (AUTO) 1.53 x10^3/uL (1-3.4); LYMPHOCYTES % (AUTO) 21 % (22-44); MD NO; MEAN CORPUSCULAR HEMOGLOBIN 31.1 pg (27.5-34.5); MEAN CORPUSCULAR HGB CONC 32.9 g/dL (33.2-36.2); MEAN CORPUSCULAR VOLUME 94.8 fL (81-97); MEAN PLATELET VOLUME 7.1 fL (7.4-10.4); MONOCYTES % (AUTO) 6 % (2-9); NEUTROPHILS # (AUTO) 5.06 x10^3/uL (1.8-6.8); NEUTROPHILS % (AUTO) 71 % (42-75); PLATELET COUNT 389 x10^3/uL (130-400); RED BLOOD COUNT 4.68 x10^6/uL (4.38-5.82); RED CELL DISTRIBUTION WIDTH 14.4 % (9.4-14.8)
[2020-01-12 06:51] LABS: ALBUMIN 3.7 g/dL (3.4-5.0); ANION GAP 6 mmol/L (5-15); CALCIUM 8.3 mg/dL (8.5-10.1); CHLORIDE 108 mmol/L (98-107); CREATININE 0.91 mg/dL (0.7-1.3); SALICYLATE LEVEL 1.9 mg/dL (2.8-20.0)
--- NOTE | 2020-01-12 07:42 | NUR ---
PT SITTING UP ON CHAIR, DR BOLAND AT BEDSIDE TO TALK TO PT. PT BECAME AGRESSIVE AND STARTED YELLING "FUCK YOU, YOU'RE NOT HELPING ME, I'M OUT OF HERE" PT LEFT DEPARTMENT, GAIT STEADY.
== END 2020-01-12 07:46 | disposition home or self-care (01) ==
LOC: ED 07:40
DX: F33.40 Major depressive disorder, recurrent, in remission, unspecified (principal); F20.89 Other schizophrenia; N30.00 Acute cystitis without hematuria
CPT/HCPCS: 36415; 80048; 80307; 81001; 82040; 85025; 87086; 99284

== ENCOUNTER 2020-01-20 16:28 | Emergency (ER) | payer MEDICAID ==
[~2020-01-20] VITALS: Ht 177.8 cm; Wt 78.0 kg
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
--- NOTE | 2020-01-20 16:58 | NUR ---
REPORT FROM SIMA. PATIENT IN BED, STATING HE BEGAN THROWING UP TODAY AND IS UNSURE WHY. STOMACH PAIN ALL OVER
[2020-01-20] MEDS ORDERED: ONDANSETRON ODT 4 MG ONE (17:10)
[2020-01-20] MEDS ORDERED: ONDANSETRON ODT 8 MG PO ONE (17:30)
[2020-01-20 17:39] VITALS: BP 124/78
== END 2020-01-20 17:40 | disposition home or self-care (01) ==
LOC: ED 17:34
DX: R11.2 Nausea with vomiting, unspecified (principal); F17.200 Nicotine dependence, unspecified, uncomplicated
CPT/HCPCS: 99283; Q0162

== ENCOUNTER 2020-02-08 10:05 | Emergency (ER) | payer MEDICAID ==
[~2020-02-08] VITALS: Ht 175.3 cm; Wt 77.0 kg
--- NOTE | 2020-02-08 11:19 | NUR ---
PUBLIC WORKS DIRECTOR: PT TO ROOM FROM LOBBY AT THIS TIME
[2020-02-08] MEDS ORDERED: MORPHINE SULFATE 4 MG/ML, 1ML ONE ×2 (11:51→12:37)
[2020-02-08] MEDS ORDERED: MORPHINE SULFATE 4 MG/ML, 1ML IVPush ONE (12:00)
[2020-02-08] MEDS ORDERED: SODIUM CHLORIDE FLUSH 10ML SYR IVF ONE (12:00)
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
[2020-02-08 12:02] LABS: BASOPHILS # (AUTO) 0.02 x10^3/uL (0-0.1); BASOPHILS % (AUTO) 0 % (0-1); EOSINOPHILS % (AUTO) 2 % (1-7); LYMPHOCYTES # (AUTO) 1.94 x10^3/uL (1-3.4); LYMPHOCYTES % (AUTO) 30 % (22-44); MD NO; MEAN CORPUSCULAR HEMOGLOBIN 31.3 pg (27.5-34.5); MEAN CORPUSCULAR HGB CONC 32.9 g/dL (33.2-36.2); MEAN CORPUSCULAR VOLUME 95.1 fL (81-97); MEAN PLATELET VOLUME 7.2 fL (7.4-10.4); MONOCYTES # (AUTO) 0.45 x10^3/uL (0.2-0.8); MONOCYTES % (AUTO) 7 % (2-9); NEUTROPHILS # (AUTO) 3.93 x10^3/uL (1.8-6.8); NEUTROPHILS % (AUTO) 61 % (42-75); PLATELET COUNT 434 x10^3/uL (130-400); RED BLOOD COUNT 3.96 x10^6/uL (4.38-5.82); RED CELL DISTRIBUTION WIDTH 14.1 % (9.4-14.8)
--- NOTE | 2020-02-08 12:41 | NUR ---
TASK RN: VERBAL ORDER FOR SECOND DOSE OF MORPHINE RECEIVED. PT MEDICATED. DENIES ANY NEEDS OR CONCERNS, CALL LIGHT IN REACH.
[2020-02-08 13:36] VITALS: BP 115/79
--- NOTE | 2020-02-08 13:37 | NUR ---
PT REPORTS PAIN IS MUCH BETTER AFTER SECOND MORPINE AT 3/10.
== END 2020-02-08 13:38 | disposition home or self-care (01) ==
LOC: ED 11:21
DX: F17.200 Nicotine dependence, unspecified, uncomplicated (principal); L03.114 Cellulitis of left upper limb
CPT/HCPCS: 36415; 73080; 76882; 85025; 93971; 96374; 99285; J2270; 96372

== ENCOUNTER 2020-02-10 04:14 | Emergency (ER) | payer MEDICAID ==
[~2020-02-10] VITALS: Ht 177.8 cm; Wt 77.6 kg
[2020-02-10 04:17] VITALS: BP 100/67
--- NOTE | 2020-02-10 06:22 | NUR ---
NIL X 1
--- NOTE | 2020-02-10 06:34 | NUR ---
NIL X2
--- NOTE | 2020-02-10 06:52 | NUR ---
tech intern: pt called for provider milton wheeler to assess. no answer.
== END 2020-02-10 06:54 | disposition left against medical advice (07) ==
LOC: ED 06:48
DX: M79.602 Pain in left arm (principal); Z53.21 Procedure and treatment not carried out due to patient leaving prior to being seen by health care provider

== ENCOUNTER 2020-03-17 06:07 | Inpatient (IN) | payer MEDICAID ==
[~2020-03-17] VITALS: Ht 185.4 cm; Wt 76.2 kg
--- NOTE | 2020-03-17 06:15 | NUR ---
PT BIB [facility] FOR DIFFUSE ABD PAIN AND N/V X3 DAYS. PT HAS BEEN SEEN AT [facility] AND HERE MULTIPLE TIMES FOR THIS COMPLAINT. PT DENIES ANY PMH/ETOH/DRUG USE.
[2020-03-17] MEDS ORDERED: PROMETHAZINE 25 MG/ML, 1ML ONE (06:25)
[2020-03-17] MEDS ORDERED: PROMETHAZINE 25 MG/ML, 1ML IM ONE (06:30)
[2020-03-17 06:37] LABS: BASOPHILS # (AUTO) 0.01 x10^3/uL (0-0.1); BASOPHILS % (AUTO) 0 % (0-1); EOSINOPHILS # (AUTO) 0.04 x10^3/uL (0-0.4); EOSINOPHILS % (AUTO) 0 % (1-7); LYMPHOCYTES # (AUTO) 1.89 x10^3/uL (1-3.4); LYMPHOCYTES % (AUTO) 18 % (22-44); MD NO; MEAN CORPUSCULAR HEMOGLOBIN 31.5 pg (27.5-34.5); MEAN CORPUSCULAR HGB CONC 33.3 g/dL (33.2-36.2); MEAN CORPUSCULAR VOLUME 94.5 fL (81-97); MEAN PLATELET VOLUME 7.6 fL (7.4-10.4); MONOCYTES % (AUTO) 7 % (2-9); NEUTROPHILS # (AUTO) 8.06 x10^3/uL (1.8-6.8); NEUTROPHILS % (AUTO) 75 % (42-75); PLATELET COUNT 399 x10^3/uL (130-400); RED BLOOD COUNT 4.91 x10^6/uL (4.38-5.82); RED CELL DISTRIBUTION WIDTH 13.8 % (9.4-14.8)
[2020-03-17 06:48] LABS: ALANINE AMINOTRANSFERASE 104 U/L (12-78); ANION GAP 6 mmol/L (5-15); CALCIUM 9.5 mg/dL (8.5-10.1); CHLORIDE 98 mmol/L (98-107); CREATININE 0.88 mg/dL (0.7-1.3)
[2020-03-17 06:50] LABS: ALKALINE PHOSPHATASE 67 U/L (45-117); BILIRUBIN,TOTAL 0.7 mg/dL (0.2-1.0); TOTAL PROTEIN 7.7 g/dL (6.4-8.2)
--- NOTE | 2020-03-17 07:01 | NUR ---
pt resting calmly in bed. stated labs have been drawn. STILL AWAITING LAB RESULTS. WILL CONTINUE TO MONITOR.
--- NOTE | 2020-03-17 07:24 | NUR ---
LABS ARE RESULTED. PT UP FOR RECHECK.
[2020-03-17] MEDS ORDERED: ONDANSETRON ODT 4 MG ONE (07:51)
[2020-03-17] MEDS ORDERED: ONDANSETRON ODT 4 MG PO ONE (08:00)
--- NOTE | 2020-03-17 08:16 | NUR ---
PT OFFERED WATER AND SPRITE FOR PO CHALLANGE. PT STATED HE HAD ALREADY THROWN UP. ERP AWARE, ORDERS PLACED. PT MEDICATED PER EMAR FOR NAUSEA. ON RECHECK AFTER MEDS, PT STATED HE IS STILL NAUSEATED. WILL CONTINUE TO MONITOR.
--- NOTE | 2020-03-17 08:35 | NUR ---
PT GIVEN ANOTHER BLANKET PER PT REQUEST. PT STATED HE HAS BEEN UNABLE TO DRINK HE IS TOO NAUSEATED. ERP AWARE, MEDS ORDERED.
[2020-03-17] MEDS ORDERED: METOCLOPRAMIDE 10MG TABLET ONE (08:39)
[2020-03-17] MEDS ORDERED: METOCLOPRAMIDE 10MG TABLET PO ONE (09:00)
--- NOTE | 2020-03-17 09:10 | NUR ---
PT RESTING CALMLY IN BED WITH EYES CLOSED. PT STATED HE IS STILL UNABLE TO DRINK ANYTHING. PT STATED LAST TIME, HE WAS ADMITTED FOR THIS AND RECIEVED IV FLUIDS. ERP AWARE, WANTS TO TRY FOOD. TRAY HAS BEEN ORDERED.
[2020-03-17] MEDS ORDERED: SODIUM CHLORIDE 0.9% 1,000 ML IV ONE (09:54)
[2020-03-17] MEDS ORDERED: SODIUM CHLORIDE FLUSH 10ML SYR IVF ONE (10:00)
[2020-03-17] MEDS ORDERED: SODIUM CHLORIDE 0.9% 1,000ML IVBOLUS ONE (10:00)
[2020-03-17] MEDS ORDERED: ONDANSETRON 2MG/ML, 2ML IVPush ONE (10:00)
--- NOTE | 2020-03-17 10:18 | NUR ---
PT GIVEN FOOD TRAY. PT PROMPTLY SAT UP AND VOMITED WHEN RN WALKED OUT. ERP AWARE. IV STARTED, WITH FLUIDS PER EMAR.
[2020-03-17] MEDS ORDERED: ONDANSETRON 2MG/ML, 2ML ONE (10:27)
[2020-03-17] MEDS ORDERED: PLEASE ENTER HEIGHT AND WEIGHT MC SCH (10:30)
[2020-03-17] MEDS ORDERED: SODIUM CHLORIDE FLUSH 10ML SYR IVF PRN (11:00)
--- NOTE | 2020-03-17 11:44 | NUR ---
REPORT TO SHANNON SIMMONS
[2020-03-17] MEDS: SODIUM CHLORIDE 0.9% 1,000 ML IV SCH (11:53)
[2020-03-17] MEDS ORDERED: ONDANSETRON 2MG/ML, 2ML IVPush PRN (12:00)
[2020-03-17] MEDS ORDERED: BISACODYL 10 MG SUPP PR PRN (12:00)
[2020-03-17 12:54] VITALS: BP 134/87
[2020-03-17 13:00] VITALS: BP 134/87
[2020-03-17] MEDS: HEPARIN 5,000 UNITS/ML, 1ML SQ SCH ×2 (13:21→20:07)
[2020-03-17] MEDS: NICOTINE 21 MG/24 HR PATCH.TD24 TD SCH (13:21)
[2020-03-17 13:23] LABS: HCT (SEDRATE) 46.6 % (39.2-51.8)
[2020-03-17 13:38] LABS: FREE T4 (FREE THYROXINE) 1.33 ng/dL (0.76-1.46)
[2020-03-17] MEDS ORDERED: POTASSIUM CHLORIDE 20 MEQ, MAGNESIUM SULFATE 2 GM, THIAMINE 200 MG, MVI ADULT 10 ML, FO... IV SCH (14:00)
[2020-03-17] MEDS: LORazepam 2 MG/ML, 1ML IV PRN ×2 (17:13→21:21)
[2020-03-17] MEDS ORDERED: LORazepam 2 MG/ML, 1ML IVPush ONE (17:30)
[2020-03-17] MEDS ORDERED: LORazepam 2 MG/ML, 1ML IV PRN (17:30)
[2020-03-17 18:29] VITALS: BP 154/97
[2020-03-18] MEDS: LORazepam 2 MG/ML, 1ML IV PRN ×7 (00:14→23:14)
[2020-03-18 00:26] VITALS: BP 147/85
[2020-03-18] MEDS: SODIUM CHLORIDE 0.9% 1,000 ML IV SCH (02:00)
[2020-03-18] MEDS: HEPARIN 5,000 UNITS/ML, 1ML SQ SCH ×3 (03:50→20:00)
[2020-03-18 04:44] LABS: BASOPHILS # (AUTO) 0.02 x10^3/uL (0-0.1); BASOPHILS % (AUTO) 0 % (0-1); EOSINOPHILS % (AUTO) 2 % (1-7); LYMPHOCYTES # (AUTO) 2.23 x10^3/uL (1-3.4); LYMPHOCYTES % (AUTO) 36 % (22-44); MD NO; MEAN CORPUSCULAR HEMOGLOBIN 31.1 pg (27.5-34.5); MEAN CORPUSCULAR VOLUME 94.4 fL (81-97); MEAN PLATELET VOLUME 7.7 fL (7.4-10.4); MONOCYTES # (AUTO) 0.42 x10^3/uL (0.2-0.8); MONOCYTES % (AUTO) 7 % (2-9); NEUTROPHILS # (AUTO) 3.39 x10^3/uL (1.8-6.8); NEUTROPHILS % (AUTO) 55 % (42-75); PLATELET COUNT 396 x10^3/uL (130-400); RED CELL DISTRIBUTION WIDTH 13.6 % (9.4-14.8)
[2020-03-18 04:53] LABS: ALANINE AMINOTRANSFERASE 85 U/L (12-78); ALBUMIN 3.2 g/dL (3.4-5.0); ANION GAP 5 mmol/L (5-15); CHLORIDE 107 mmol/L (98-107); CREATININE 0.69 mg/dL (0.7-1.3)
[2020-03-18 04:58] LABS: ALKALINE PHOSPHATASE 57 U/L (45-117); BILIRUBIN,TOTAL 0.7 mg/dL (0.2-1.0); CHOL/HDL RATIO 3.8; CHOLESTEROL, TOTAL 156 mg/dL (140-239); HDL CHOL % 26 % (26-37); HDL CHOLESTEROL (DIRECT) 41 mg/dL (40-60); LDL CHOLESTEROL,CALCULATED 97 mg/dL (54-169); LDL/HDL RATIO 2.4 (0.5-3.0); TOTAL PROTEIN 6.6 g/dL (6.4-8.2); TRIGLYCERIDES 92 mg/dL (50-200); VLDL CHOLESTEROL 18 mg/dL (0-25)
[2020-03-18] MEDS: PANTOPRAZOLE 40 MG IV IVPush SCH (07:43)
[2020-03-18] MEDS: morphine SULFATE 10 MG/ML, 1ML IVPush PRN ×3 (10:24→21:18)
[2020-03-18] MEDS: NICOTINE 21 MG/24 HR PATCH.TD24 TD SCH (12:48)
[2020-03-18 13:47] VITALS: BP 125/80
[2020-03-18 20:50] VITALS: BP 165/79
[2020-03-19 01:37] VITALS: BP 126/72
[2020-03-19] MEDS: morphine SULFATE 10 MG/ML, 1ML IVPush PRN ×3 (02:23→11:18)
[2020-03-19] MEDS: HEPARIN 5,000 UNITS/ML, 1ML SQ SCH ×2 (04:00→12:22)
[2020-03-19 06:01] LABS: BASOPHILS # (AUTO) 0.06 x10^3/uL (0-0.1); BASOPHILS % (AUTO) 1 % (0-1); EOSINOPHILS # (AUTO) 0.14 x10^3/uL (0-0.4); EOSINOPHILS % (AUTO) 2 % (1-7); LYMPHOCYTES # (AUTO) 2.48 x10^3/uL (1-3.4); LYMPHOCYTES % (AUTO) 30 % (22-44); MD NO; MEAN CORPUSCULAR HEMOGLOBIN 30.8 pg (27.5-34.5); MEAN CORPUSCULAR HGB CONC 32.1 g/dL (33.2-36.2); MEAN CORPUSCULAR VOLUME 95.8 fL (81-97); MEAN PLATELET VOLUME 7.5 fL (7.4-10.4); MONOCYTES # (AUTO) 0.64 x10^3/uL (0.2-0.8); MONOCYTES % (AUTO) 8 % (2-9); NEUTROPHILS # (AUTO) 4.85 x10^3/uL (1.8-6.8); NEUTROPHILS % (AUTO) 59 % (42-75); PLATELET COUNT 392 x10^3/uL (130-400); RED BLOOD COUNT 4.45 x10^6/uL (4.38-5.82); RED CELL DISTRIBUTION WIDTH 13.6 % (9.4-14.8)
[2020-03-19 06:02] LABS: CHLORIDE 106 mmol/L (98-107)
[2020-03-19] MEDS: LORazepam 2 MG/ML, 1ML IV PRN (06:04)
[2020-03-19 06:10] LABS: ALANINE AMINOTRANSFERASE 75 U/L (12-78); ALBUMIN 3.3 g/dL (3.4-5.0); ALKALINE PHOSPHATASE 61 U/L (45-117); ANION GAP 6 mmol/L (5-15); BILIRUBIN, DIRECT 0.1 mg/dL (0.1-0.2); BILIRUBIN,INDIRECT 0.3 mg/dL (0.0-2.0); BILIRUBIN,TOTAL 0.4 mg/dL (0.2-1.0); CALCIUM 8.6 mg/dL (8.5-10.1); CREATININE 0.78 mg/dL (0.7-1.3); TOTAL PROTEIN 6.6 g/dL (6.4-8.2)
[2020-03-19] MEDS: PANTOPRAZOLE 40 MG IV IVPush SCH (07:49)
[2020-03-19] MEDS ORDERED: FOLIC ACID 1 MG TABLET PO SCH (09:00)
[2020-03-19] MEDS ORDERED: THIAMINE 100MG TABLET PO SCH (09:00)
[2020-03-19 09:17] VITALS: BP 107/63
[2020-03-19] MEDS: NICOTINE 21 MG/24 HR PATCH.TD24 TD SCH (12:22)
== END 2020-03-19 12:22 | disposition left against medical advice (07) | DRG 439 ==
LOC: ED 06:20 → EDIP 10:55 → 3N 12:51
PROVIDERS: ADMIT Internal Medicine; ATTEND Internal Medicine
DX: K85.90 Acute pancreatitis without necrosis or infection, unspecified (principal); E87.1 Hypo-osmolality and hyponatremia; F10.239 Alcohol dependence with withdrawal, unspecified; F12.90 Cannabis use, unspecified, uncomplicated; R74.0 Nonspecific elevation of levels of transaminase and lactic acid dehydrogenase [LDH]; Y90.0 Blood alcohol level of less than 20 mg/100 ml; E86.0 Dehydration; Z72.0 Tobacco use; Z59.0 Homelessness
CPT/HCPCS: 36415; 96361; 96372; 96374; 99285; J7042; 76700; 80048; 80053; 80061; 80076; 83690; 83735; 84100; 84439; 84443; 85025; 85651; G0378; J1644; J2405; J2550; J3411; J3475; J3480; Q0162; C9113; J2060; J2270; J7030

== ENCOUNTER 2020-03-24 17:43 | Emergency (ER) | payer MEDICAID ==
[~2020-03-24] VITALS: Ht 177.8 cm; Wt 73.5 kg
[2020-03-24 17:45] VITALS: BP 112/70
--- NOTE | 2020-03-24 18:20 | NUR ---
TASK RN: PT AMBULATED STEADILY TO ROOM FROM TRIAGE, NAD NOTED. PT REPORTS "MIND NOT BEING RIGHT" AFTER TAKING LSD SEVERAL DAYS AGO "FOR HIS BIRTHDAY". THOUGHTS OF SI WO SPECIFIC PLAN. DENIES HX OF SI OR HI. PT IS A&OX4, CALM AND COOPERATIVE. PROVIDED DOA, COLLECTED AND SENT TO LAB WITH TECH. PT IN HOSPITAL GOWN, ALL BELONGINGS BAGGED, LABELLED AND PLACED IN LOCKER (08/08). ROOM SECURE AND SITTER PRESENT. REPORT TO PRIMARY RN
[2020-03-24 18:26] LABS: MICROSCOPIC INDICATED
[2020-03-24 18:35] LABS: AMPHETAMINE SCREEN, URINE Positive (Negative); BARBITURATE SCREEN, URINE Negative (Negative); BENZODIAZEPINE SCREEN, URINE Negative (Negative); CANNABINOID SCREEN, URINE Positive (Negative); COCAINE SCREEN, URINE Negative (Negative); METHADONE SCREEN, URINE Negative (Negative); OPIATE SCREEN, URINE Negative (Negative)
--- NOTE | 2020-03-24 18:47 | NUR ---
PT REMAINS IN DIRECT VIEW OF SITTER IN ROOM WITH BELONGINGS SECURED BEHIND PULL DOWN DOOR. MD AT BEDSIDE TALKING WITH PT
--- NOTE | 2020-03-24 19:10 | NUR ---
REPORT OF PT FROM TROY PIKE AND ASSUMING CARE OF PT AT THIS TIME.
[2020-03-24 19:22] LABS: BASOPHILS # (AUTO) 0.02 x10^3/uL (0-0.1); BASOPHILS % (AUTO) 0 % (0-1); EOSINOPHILS # (AUTO) 0.08 x10^3/uL (0-0.4); EOSINOPHILS % (AUTO) 1 % (1-7); LYMPHOCYTES # (AUTO) 1.63 x10^3/uL (1-3.4); LYMPHOCYTES % (AUTO) 27 % (22-44); MD NO; MEAN CORPUSCULAR HEMOGLOBIN 31.6 pg (27.5-34.5); MEAN CORPUSCULAR HGB CONC 33.2 g/dL (33.2-36.2); MEAN PLATELET VOLUME 7.7 fL (7.4-10.4); MONOCYTES # (AUTO) 0.45 x10^3/uL (0.2-0.8); MONOCYTES % (AUTO) 8 % (2-9); NEUTROPHILS # (AUTO) 3.77 x10^3/uL (1.8-6.8); NEUTROPHILS % (AUTO) 63 % (42-75); PLATELET COUNT 363 x10^3/uL (130-400); RED CELL DISTRIBUTION WIDTH 13.4 % (9.4-14.8)
[2020-03-24 19:24] LABS: ALBUMIN 3.2 g/dL (3.4-5.0); ANION GAP 5 mmol/L (5-15); CALCIUM 7.9 mg/dL (8.5-10.1); CHLORIDE 106 mmol/L (98-107)
[2020-03-24 19:25] LABS: CREATININE 0.75 mg/dL (0.7-1.3)
[2020-03-24 19:40] LABS: SALICYLATE LEVEL < 1.7 mg/dL (2.8-20.0)
--- NOTE | 2020-03-24 19:55 | NUR ---
PT PROVIDED SI MEAL TRAY PER PT REQUEST.
--- NOTE | 2020-03-24 21:22 | NUR ---
PT ASLEEP IN [facility] AT THIS TIME WITH SITTER OUTSIDE OF ROOM FOR DIRECT OBSERVATION OF PT;
--- NOTE | 2020-03-24 22:09 | NUR ---
PT ASLEEP IN [facility] AT THIS TIME WITH SITTER OUTSIDE OF ROOM FOR DIRECT OBSERVATION OF PT.
--- NOTE | 2020-03-25 00:18 | NUR ---
PT ASLEEP IN [facility] AT THIS TIME;
--- NOTE | 2020-03-25 01:47 | NUR ---
PT SLEEPING IN [facility] AT THIS TIME; NASH. SITTER OUTSIDE OF PT ROOM FOR DIRECT OBSERVATION OF PT.
[2020-03-25] MEDS ORDERED: OLANZAPINE 5 MG TABLET ONE (02:12)
--- NOTE | 2020-03-25 02:15 | NUR ---
PT MEDICATED PER MAR.
--- NOTE | 2020-03-25 03:00 | NUR ---
PT ASLEEP IN [facility] AT THIS TIME; NASH. SITTER OUTSIDE OF PT ROOM FOR DIRECT OBSERVATION OF PT AT THIS TIME.
--- NOTE | 2020-03-25 04:04 | NUR ---
MT: PSYCH PACKET SENT TO [facility], [facility], AND [facility].
--- NOTE | 2020-03-25 04:44 | NUR ---
MT: [facility]AN ACCEPTED PATIENT. ACCEPTING DOCTOR WILL BE DR. WEAVER.
--- NOTE | 2020-03-25 04:50 | NUR ---
REPORT OF PT TO TROY CARTER AT [facility]. ALL QUESTIONS ANSWERED. PER RAUL, PT TO BE TRANSPORTED AT 0800 TO FACILITY. PT REMAINS ASLEEP IN [facility] WITH NAD AND SITTER OUSIDE OF PT ROOM FOR DIRECT OBSERVATION OF PT.
--- NOTE | 2020-03-25 06:19 | NUR ---
PT ASLEEP IN [facility] AT THIS TIME WITH SITTER OUTSIDE OF PT ROOM FOR DIRECT OBSERVATION OF PT.
--- NOTE | 2020-03-25 07:03 | NUR ---
RECEIVED REPORT FROM VERA CHAMBERS RN. PT RESTING ON [facility]. SITTER REMAINS AT BEDSIDE. ROOM REMAINS SECURE.
--- NOTE | 2020-03-25 08:29 | NUR ---
PT PROVIDED W/ SI BREAKFAST TRAY. [facility] ARRIVAL TO ED TO TRANSPORT PT. [facility] PROVIDED W/ BAG (1 OF 1) PERSONAL BELONGINGS.
[2020-03-25] MEDS ORDERED: OLANZAPINE 5 MG TABLET PO SCH (09:00)
== END 2020-03-25 08:31 ==
LOC: ED 19:37
DX: R45.851 Suicidal ideations (principal); F16.10 Hallucinogen abuse, uncomplicated; F17.200 Nicotine dependence, unspecified, uncomplicated; F20.9 Schizophrenia, unspecified; Z87.11 Personal history of peptic ulcer disease
CPT/HCPCS: 36415; 80048; 80307; 81001; 82040; 85025; 99285

== ENCOUNTER 2020-04-05 07:25 | Emergency (ER) | payer MEDICAID ==
[~2020-04-05] VITALS: Ht 177.8 cm; Wt 80.6 kg
[2020-04-05 07:28] VITALS: BP 98/44
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
== END 2020-04-05 07:42 | disposition left against medical advice (07) ==
LOC: ED 07:29
DX: Z04.3 Encounter for examination and observation following other accident (principal); W18.39XA Other fall on same level, initial encounter; Y93.89 Activity, other specified; Y92.89 Other specified places as the place of occurrence of the external cause; Y99.8 Other external cause status
CPT/HCPCS: 99283

== ENCOUNTER 2020-07-06 13:11 | Emergency (ER) | payer MEDICAID ==
[~2020-07-06] VITALS: Ht 175.3 cm; Wt 65.0 kg
--- NOTE | 2020-07-06 13:28 | NUR ---
BIBA FOR N/V X2 DAYS, PT ACTIVELY VOMITING BILE. PT RECEIVED 4MG ODT BURAK BY EMS. PT PLACED ON VITALS AND CARDIAC MONITORS. CALL LIGHT WITHIN REACH.
[2020-07-06] MEDS ORDERED: PROMETHAZINE 25 MG/ML, 1ML ONE (13:36)
[2020-07-06] MEDS ORDERED: DIPHENHYDRAMINE 50 MG/ML, 1ML ONE (13:58)
[2020-07-06] MEDS ORDERED: MORPHINE SULFATE 4 MG/ML, 1ML ONE (13:58)
[2020-07-06] MEDS ORDERED: MORPHINE SULFATE 4 MG/ML, 1ML IVPush PRN (14:00)
[2020-07-06] MEDS ORDERED: PROMETHAZINE 25 MG/ML, 1ML IM ONE (14:00)
[2020-07-06] MEDS ORDERED: DIPHENHYDRAMINE 50 MG/ML, 1ML IVPush ONE (14:00)
[2020-07-06] MEDS ORDERED: SODIUM CHLORIDE FLUSH 10ML SYR IVF ONE (14:00)
[2020-07-06 14:09] LABS: BASOPHILS % (AUTO) 0 % (0-1); EOSINOPHILS % (AUTO) 1 % (1-7); LYMPHOCYTES % (AUTO) 23 % (22-44); MEAN CORPUSCULAR HEMOGLOBIN 30.9 pg (27.5-34.5); MEAN CORPUSCULAR HGB CONC 33.6 g/dL (33.2-36.2); MEAN PLATELET VOLUME 7.4 fL (7.4-10.4); MONOCYTES % (AUTO) 6 % (2-9); NEUTROPHILS % (AUTO) 70 % (42-75); PLATELET COUNT 418 x10^3/uL (130-400); RED CELL DISTRIBUTION WIDTH 13.8 % (9.4-14.8)
[2020-07-06 14:17] LABS: MD NO
[2020-07-06 14:22] LABS: ALANINE AMINOTRANSFERASE 194 U/L (12-78); ANION GAP 12 mmol/L (5-15); CALCIUM 9.4 mg/dL (8.5-10.1); CHLORIDE 105 mmol/L (98-107); CREATININE 0.96 mg/dL (0.7-1.3)
[2020-07-06 14:24] LABS: ALKALINE PHOSPHATASE 89 U/L (45-117); BILIRUBIN,TOTAL 0.7 mg/dL (0.2-1.0); TOTAL PROTEIN 8.6 g/dL (6.4-8.2)
--- NOTE | 2020-07-06 14:26 | NUR ---
pt drinking out of sink and then making himself throw up. primary nurse notified. pt told to stop. as
[2020-07-06 14:52] VITALS: BP 149/113
--- NOTE | 2020-07-06 14:53 | NUR ---
DISCUSSED WITH PT NOT TO MAKE SELF THROW UP AND TO STOP DRINKING WATER OUT OF FAUCET, PT AGREES WITH RN AT THIS TIME. VSS.
--- NOTE | 2020-07-06 15:30 | NUR ---
PT SEEN DRINKING WATER OUT OF SINK AND PUTTING FINGERS DOWN THROAT TO MAKE HIMSELF VOMIT, ADVISED PT TO STOP, PT REFUSED TO COMPLY. PT DECLINED WAITING FOR DC PAPERWORK AND WAS ESCORTED OUT BY SECURITY.
== END 2020-07-06 15:48 | disposition home or self-care (01) ==
LOC: ED 15:12
DX: R11.2 Nausea with vomiting, unspecified (principal); R10.9 Unspecified abdominal pain; Z87.11 Personal history of peptic ulcer disease
CPT/HCPCS: 36415; 80053; 83690; 85025; 96372; 96374; 96375; 99284; J1200; J2270; J2550

== ENCOUNTER 2020-12-23 10:21 | Emergency (ER) | payer MEDICAID ==
[~2020-12-23] VITALS: Ht 177.8 cm; Wt 81.2 kg
--- NOTE | 2020-12-23 11:04 | NUR ---
PT WITH STEADY GAIT TO BATHROOM TO PROVIDE UA.
--- NOTE | 2020-12-23 11:12 | NUR ---
PT W/ C/O PAINFUL URINIATION, DISCHARGE FROM PENIS, AND PAINFUL TESTICLES X 2 DAYS AFTER HAVING UNPROTECTED SEX, PT POSTIONED TO COMFORT. ATTACHED TO MONITORS. VSS. NASH. DR. MCDANIELS EVALUATED AT BEDSIDE.
[2020-12-23] MEDS ORDERED: CEFTRIAXONE 1,000 MG IM ONE (11:30)
[2020-12-23] MEDS ORDERED: AZITHROMYCIN 500 MG TABLET PO ONE (11:30)
--- NOTE | 2020-12-23 11:33 | NUR ---
US AT BEDSIDE
[2020-12-23 11:34] LABS: MICROSCOPIC INDICATED
[2020-12-23] MEDS ORDERED: CEFTRIAXONE 1,000 MG ONE (12:01)
[2020-12-23] MEDS ORDERED: AZITHROMYCIN 250 MG TABLET ONE (12:02)
[2020-12-23 12:55] VITALS: BP 127/79
== END 2020-12-23 12:58 | disposition home or self-care (01) ==
LOC: ED 12:55
DX: N34.1 Nonspecific urethritis (principal); F17.200 Nicotine dependence, unspecified, uncomplicated
CPT/HCPCS: 76870; 81001; 87077; 87086; 87491; 87591; 96372; 99284; J0696